=== PATIENT | female | born 1985 ===

== ENCOUNTER 2019-03-05 11:11 | Emergency (ER) | payer OTHER ==
--- NOTE | 2019-03-05 11:20 | Event Note ---
ED Screening Note ED Screening Note: LNMP February 02 yesterday went to [facility], pt is 4 1/2 weeks based on US hx of fibroids states she took urine test and they have been negative today began to have vaginal spotting lower abd cramping /P:1/A:1 No pMHx no allergies to meds This initial assessment/diagnostic orders/clinical plan/treatment(s) is/are subject to change based on patients health status, clinical progression and re- assessment by fellow clinical providers in the ED. Further treatment and workup at subsequent clinical providers discretion. Patient/guardian urged not to elope from the ED as their condition may be serious if not clinically assessed and managed. Initial orders include: labs, UA, US OB
[2019-03-05 11:21] VITALS: BP 107/71
[2019-03-05 11:52] LABS: Basophils # (Auto) 0.1 K/mm3 (0.0-0.1); Basophils % (Auto) 0.9 % (0.0-1.8); Eosinophils # (Auto) 0.5 K/mm3 (0.0-0.4); Eosinophils % (Auto) 6.2 % (0.0-4.3); Hemoglobin 14.5 gm/dl (10.1-14.3); Lymphocytes # (Auto) 2.1 K/mm3 (1.2-5.4); Lymphocytes % (Auto) 25.3 % (13.4-35.0); Mean Corpuscular HGB Conc 35 % (30-34); Mean Corpuscular Volume 90 fl (79-97); Monocytes # (Auto) 0.5 K/mm3 (0.0-0.8); Monocytes % (Auto) 5.7 % (0.0-7.3); Platelet Count 195 K/mm3 (140-440); Red Blood Count 4.69 M/mm3 (3.65-5.03); Red Cell Distribution Width 13.5 % (13.2-15.2)
--- NOTE | 2019-03-05 12:22 | Ultrasound Report ---
ULTRASOUND OB <=14 WEEKS FETUS ULTRASOUND OB TRANSVAGINAL HISTORY: Vaginal bleeding in a 4 weeks patient COMPARISON: None. TECHNIQUE: Routine transabdominal and transvaginal OB ultrasound performed. Color Doppler imaging. FINDINGS: Uterus: Mildly enlarged measuring 9.4 x 5.7 x 6.0 cm. A small anterior wall fibroid measures 1 cm. Gestational Sac: None seen. Yolk Sac: Not seen. Fetus/Embryo: Not seen. Embryonic/ cardiac activity: Not seen. The endometrial stripe is poorly visualized. The endometrial stripe appears to measure approximately 5 mm in thickness. Ovaries: The right ovary is normal in size and appearance with normal blood flow, measuring 2.8 x 1. 2 x 3.1 cm. The left ovary is normal in size and appearance with normal blood flow, measuring 3.1 x 1.6 x 2.4 cm. Hypoechoic space-occupying mass in the left ovary with peripheral vascularity is most likely the corpus luteum. Additional findings: None. IMPRESSION No intrauterine is identified at this time. This could represent a very early normal pregna ncy. Please note that spontaneous or ectopic is not excluded at this time. Please correlate with the patient's clinical presentation and consider close interval follow-up. Signer Name: Abelardo Lantigua Jr, MD Signed: 03/05/2019 12:17 PM Workstation Name: [id number]
[2019-03-05 12:49] LABS: Bilirubin,Urine NEG (Negative); Blood,Urine LG (Negative); Color,Urine Yellow (Yellow); Mucus,Urine FEW /HPF; Urobilinogen,Urine < 2.0 mg/dL (<2.0)
[2019-03-05 12:50] LABS: RBC,Urine > 182.0 /HPF (0.0-6.0)
--- NOTE | 2019-03-05 13:53 | Emergency Department Report ---
Blank Doc - Documentation Documentation: This is a 33-year-old female that presents with vaginal bleeding, as per Jacqueline Busby's notes. When I entered the room and introduced myself calmly, the patient started to yell at me and curse at me saying why I took so long. I tried to explain to the patient calmly that I apologize and I had critical patients. Patient started to yell again and become very aggressive. I told the patient that I am sorry that you are upset but I will get the rn charge to assist you as well. She got up and started to curse and left. I did not examine the patient or received any information about patients visit today. Labs has been reviewed and US has been reviewed, but I do not know the patients complaint or physical exam. Patient left against medical advice.
== END 2019-03-05 13:54 | disposition left against medical advice (07) ==
LOC: ED 11:11
DX: O26.851 Spotting complicating pregnancy, first trimester (principal); Z3A.01 Less than 8 weeks gestation of pregnancy; Z53.21 Procedure and treatment not carried out due to patient leaving prior to being seen by health care provider
CPT/HCPCS: 36415; 76801; 76817; 81001; 84702; 85025; 86900; 86901; 87086